=== PATIENT | female | born 1970 | race Hispanic/Latino ===

== ENCOUNTER 2023-01-03 05:50 | Emergency (ER) | payer OTHER | END 2023-01-03 08:00 | LOC: ERS 05:50 | DX: S09.90XA Unspecified injury of head, initial encounter (principal); J45.901 Unspecified asthma with (acute) exacerbation; R55 Syncope and collapse; W01.10XA Fall on same level from slipping, tripping and stumbling with subsequent striking against unspecified object, initial encounter | CPT/HCPCS: 70450; 71045; 72125 ==